=== PATIENT | male | born 1960 | race Caucasian/White ===

== ENCOUNTER 2018-09-13 16:36 | Emergency (ER) | payer SELFPAY ==
[2018-09-13 16:36] VITALS: BP 197/86; PULSE 112; RESP 17; TEMP 37.4; O2SAT 97; BMI 29.9
[2018-09-13 16:41] VITALS: PULSE 108; RESP 19; O2SAT 97
--- NOTE | 2018-09-13 16:54 | EKG12_ITS ---
Test Reason : SEIZURE Blood Pressure : / mmHG Vent. Rate : 101 BPM Atrial Rate : 101 BPM P-R Int : 148 ms QRS Dur : 082 ms QT Int : 330 ms P-R-T Axes : 060 012 038 degrees QTc Int : 427 ms Sinus tachycardia Otherwise normal ECG Confirmed by RADHA HARRELL, DEVENDRA ([id number]), scientific editor YULIANA COBIAN ([id number] on 09/16/2018 2:18:35 PM Referred By: LOREN Confirmed By:DEVENDRA GARCIA MD
[2018-09-13 17:40] LABS: Absolute Lymphocyte Count 1.52 X10^3/ul (0.83-4.51); Absolute Neutrophil Count 7.5 X10^3/uL (2.0-7.7); Basophil# 0.03 X10^3/uL; Basophil% 0.3 % (0-1); Eosinophil# 0.12 X10^3/uL; Eosinophils% 1.2 % (0-5); Hematocrit 43.5 % (40-54); Hemoglobin 15.3 g/dl (13.0-16.5); Lymphocyte # 1.52 X10^3/ul (4.0); Lymphocyte % 15.3 % (19-41); Mean Corp Hgb Conc 35.2 g/gl (32-36); Mean Corpuscular Hgb 32.1 pg (27.0-32.0); Mean Corpuscular Volume 91.4 fL (80-94); Mean Platelet Vol. 9.4 fl (6.2-12.0); Monocyte# 0.72 X10^3/uL; Monocyte% 7.2 % (0-10); Neutrophil # 7.53 X10^3/uL (2.7-7.7); Neutrophil % 75.8 % (47-70); Platelet Count 222 K/mm3 (150-450); RBC Distribution Width CV 13.2 % (11.6-14.6); RBC Distribution Width SD 43.8 fl (35.1-43.9); Red Blood Count 4.76 M/mm3 (4.6-6.2); White Blood Count 9.9 K/mm3 (4.4-11.0)
[2018-09-13 17:46] LABS: POSITIVE COUNT NO; POSITIVE DIFFERENTIAL NO; POSITIVE MORPHOLOGY NO
--- NOTE | 2018-09-13 17:48 | ED.VISSUMM ---
- ER Visit Summary Date of Service: 09/13/18 Chief Complaint: Seizure History of Present Illness: The patient is a 57 M who was at work today when he had a seizure. He states that he was at the end of his workday using a bonnie when he got a funny feeling in his head. He recognized this as a aura that he experiences before he has a seizure. He sat down on the ground. Reportedly seizure was generalized lasting 5 minutes. He has no complaints at the current time. He denies any injuries. Denies any loss of bowel or bladder control. No headache. He used to be on Dilantin and stopped this 1-/2-2 years ago. He no longer sees neurology. Physical Examination: Afebrile vital signs are stable Gen: Well-nourished well-developed Head: Normocephalic atraumatic Eyes: Perrl EOMI ENT: TMs clear no rhinorrhea moist mucous membranes Neck: Supple no lymphadenopathy no JVD nontender CVS: Regular rate rhythm no murmurs normal S1-S2 Respiratory: No distress clear to auscultation bilaterally chest nontender Abdomen: Soft nontender nondistended normal bowel sounds no masses Back: Nontender Extremity: Nontender no edema Skin: Normal color no rash Neuro: alert orientated ?3 CN II-XII intact normal strength sensation reflexes gait cerebellar Psych: Normal affect normal mood Test Results: EKG shows a sinus rhythm at a rate of 101. Basic labs are negative. Emergency Department Course and Treatment: Seizure precautions instituted. Patient received Dilantin 50 mg/kg IV. Patient states that his previous dose of Dilantin was 100 mg twice daily. I will write for this. Impression: 1. Epileptic seizure This note was generated with [employer] dictation software. It may contain incorrect words, spelling, and punctuation that were not noted in review of the chart prior to signing ED Disposition - Plan for ED Patient: Disposition: Home or Assisted Living Chief Complaint: Seizure Instructions: ED Seizure Recurrent Prescriptions: Phenytoin Na [Dilantin] 100 mg PO BID 30 Days cap Referrals: Neto Vu MD [STAFF PHYSICIAN] - Additional Instructions: It is our recommendation that you not drive because of the seizure disorder You need to speak with your employer regarding using the machinery at work until you have seen neurology. You need to see neurology in follow-up. You will need to have your Dilantin level checked. If you feel tired or confused or weak you should have your level checked
[2018-09-13 17:55] LABS: ALB/GLOB Ratio 1.3 RATIO (0.9-2.4); AST(SGOT) 18 U/L (15-37); Alanine Aminotransfer ALT/SGPT 24 U/L (16-61); Albumin, Serum 4.1 g/dL (3.2-5.0); Alkaline Phosphatase 71 U/L (45-117); Anion Gap 8 (5-15); BUN 11 mg/dL (7-18); BUN/Creat Ratio 10.3 RATIO (10-20); Calcium,Total 8.6 mg/dL (8.5-10.1); Chloride 104 mmol/L (98-107); Creatinine, Serum 1.07 mg/dL (0.70-1.30); EST Glomerular Filtration Rate 76 mL/min (>60); Est Glom Filt Rate - Afr Amer 92 mL/min (>60); Estimated Creatinine Clearance 75.47 ml/min; Globulin 3.2 g/dL (2.2-4.2); Glucose 87 mg/dL (74-106); Potassium 3.6 mmol/L (3.5-5.1); Protein, Total 7.3 g/dL (6.4-8.2); Sodium Level 137 mmol/L (136-145)
[2018-09-13 18:45] VITALS: BP 148/92; PULSE 88; RESP 18; O2SAT 99
[2018-09-13 19:28] VITALS: BP 156/75; PULSE 91; RESP 20; O2SAT 98
--- OUTSIDE RECORDS SUMMARY | 2018-11-09 09:26 | XMS RPT_ITS ---
:1960 Author Organization [facility] Care Team Providers Name Role Phone NO, DOCTOR ON Consulting Unavailable NO, DOCTOR ON Referring Unavailable HARISH RETANA Admitting Unavailable HARISH RETANA Attending Unavailable HARISH RETANA Primary Care Unavailable Jake Ware Attending Unavailable Vish Claire Attending Unavailable Primay Care Physicia, No Primary Care Unavailable PROBLEMS PROBLEMS No Problem Records FoundPROCEDURES PROCEDURES No Procedure Records FoundRESULTS RESULTS 12 LEAD ELECTROCARDIOGRAM Observed: 09/16/2018 Status: F Source: [place] [address] 2:19 PM [facility] REPOSITORY [facility] Cardiovascular Services [address] [place] [address] 12 Lead EKG 09/13/18 1712 MR#: [id number] Acct: [id number] Name: INÉS TRACEY Rep #: [id number] : 1960 57 From: Paul Sepulveda MD Attending Dr: Status: DEP ER Ordering Dr: Vish Claire DO Date: 09/13/18 Location: ED Sex: M C Admitted: Test Reason : SEIZURE Blood Pressure : / mmHG Vent. Rate : 101 BPM Atrial Rate : 101 BPM P-R Int : 148 ms QRS Dur : 082 ms QT Int : 330 ms P-R-T Axes : 060 012 038 degrees QTc Int : 427 ms Sinus tachycardia Otherwise normal ECG Confirmed by PAUL SEPULVEDA MD ([id number]), editor city YULIANA COBIAN ([id number]) on 09/16/2018 2:18:35 PM Referred By: LOREN Confirmed By:PAUL SEPULVEDA MD 09/16/18 1418 Date Paul Sepulveda MD CC: No Primary Care Physician; Vish Claire DO Signed EMERGENCY DEPARTMENT Observed: 09/15/2018 Status: F Source: [place] [address] SUMMARY 8:16 AM [facility] REPOSITORY [facility] Medical Records Department [address] [place] [address] Emergency Department Summary 09/13/18 1748 MR#: [id number] Acct: [id number] Name: INÉS TRACEY Rep #: [id number] : 1960 57 From: Vish Claire DO PCP: Care Physician, No Primary Status: DEP ER - ER Visit Summary Date of Service: 09/13/18 Chief Complaint: Seizure History of Present Illness: The patient is a 57 M who was at work today when he had a seizure. He states that he was at the end of his workday using a bonnie when he got a funny feeling in his head. He recognized this as a aura that he experiences before he has a seizure. He sat down on the ground. Reportedly seizure was generalized lasting 5 minutes. He has no complaints at the current time. He denies any injuries. Denies any loss of bowel or bladder control. No headache. He used to be on Dilantin and stopped this 1-1/2-2 years ago. He no longer sees neurology. Physical Examination: Afebrile vital signs are stable Gen: Well-nourished well-developed Head: Normocephalic atraumatic Eyes: Perrl EOMI ENT: TMs clear no rhinorrhea moist mucous membranes Neck: Supple no lymphadenopathy no JVD nontender CVS: Regular rate rhythm no murmurs normal S1-S2 Respiratory: No distress clear to auscultation bilaterally chest nontender Abdomen: Soft nontender nondistended normal bowel sounds no masses Back: Nontender Extremity: Nontender no edema Skin: Normal color no rash Neuro: alert orientated 3 CN II-XII intact normal strength sensation reflexes gait cerebellar Psych: Normal affect normal mood Test Results: EKG shows a sinus rhythm at a rate of 101. Basic labs are negative. Emergency Department Course and Treatment: Seizure precautions instituted. Patient received Dilantin 50 mg/kg IV. Patient states that his previous dose of Dilantin was 100 mg twice daily. I will write for this. Impression: 1. Epileptic seizure This note was generated with Samplesaint dictation software. It may contain incorrect words, spelling, and punctuation that were not noted in review of the chart prior to signing ED Disposition - Plan for ED Patient: Disposition: Home or Assisted Living Chief Complaint: Seizure Instructions: ED Seizure Recurrent Prescriptions: Phenytoin Na [Dilantin] 100 mg PO BID 30 Days cap Referrals: Neto Vu MD [STAFF PHYSICIAN] - Additional Instructions: It is our recommendation that you not drive because of the seizure disorder You need to speak with your employer regarding using the machinery at work until you have seen neurology. You need to see neurology in follow-up. You will need to have your Dilantin level checked. If you feel tired or confused or weak you should have your level checked What to do if you have Problems For any increased pain, shortness of breath, bleeding, nausea or vomiting, chest pain, or any unexpected problems, contact your Primary Care Provider. Call [facility] ([phone]) or report to the closest Emergency Room. Call 911 if necessary. 09/15/18 0816 <Electronically signed by Vish Claire DO> Date Vish Claire DO Cosigner Signature (If Indicated): Date CC: No Primary Care Physician CBC W/DIFF, AUTOMATED Collected: 09/13/2018 Status: F Source: DINA 5:10 PM [facility] REPOSITORY TYPE CODE TESTS RESULT OUT OF RANGE REFERENCE UNITS LAB L100.1000 4.4-11.0 K/mm3 Normal WBC 9.9 LAB L100.1200 4.6-6.2 M/mm3 Normal RBC 4.76 LAB L100.1300 13.0-16.5 g/dl Normal HGB 15.3 LAB L100.1400 40-54 % Normal HCT 43.5 LAB L100.1500 80-94 fL Normal MCV 91.4 LAB L100.1600 27.0-32.0 pg High MCH 32.1 LAB L100.1700 32-36 g/gl Normal MCHC 35.2 LAB L100.1810 11.6-14.6 % Normal RDW CV 13.2 LAB L100.1820 35.1-43.9 fl Normal RDW SD 43.8 LAB L100.1900 150-450 K/mm3 Normal PLT 222 LAB L100.2000 6.2-12.0 fl Normal MPV 9.4 LAB L100.2100 47-70 % High NEUT% 75.8 LAB L100.2200 19-41 % Low LY% 15.3 LAB L100.2300 0-10 % Normal MONO% 7.2 LAB L100.2400 0-5 % Normal EO% 1.2 LAB L100.2500 0-1 % Normal BASO% 0.3 LAB L100.2550 0.0-0.9 % Normal IM GRAN % 0.200 Result Comment: IG% - Immature Granulocytes (promyelocytes, myelocytes and metamyelocytes) > 1% indicates that a LEFT SHIFT is Present. LAB L100.2620 2.0-7.7 X10 3/uL Normal Absolute Neut 7.5 LAB L100.2720 0.83-4.51 X10 3/ul Normal Absolute Lymph 1.52 Performed By: #### L100.0100 #### [facility] [place], [address] COMPREHENSIVE METABOLIC Collected: 09/13/2018 Status: F Source: DINA ALLEN 5:10 PM [facility] REPOSITORY TYPE CODE TESTS RESULT OUT OF RANGE REFERENCE UNITS LAB L501.0100 74-106 mg/dL Normal GLU 87 Result Comment: Please note revised GLUCOSE reference range effective 2017. LAB L501.1000 7-18 mg/dL Normal BUN 11 LAB L501.1100 0.70-1.30 mg/dL Normal CREAT,SERUM 1.07 Result Comment: The validity of the calculated GFR AND GFRAA in patients over 70 years has not been determined. Clinical correlation is essential. LAB L501.1110 >60 mL/min Normal EST GFR 76 Result Comment: Non- GFR Calc LAB L501.1115 >60 mL/min Normal EST GFR - AA 92 Result Comment: GFR Calc LAB L501.1255 ml/min Normal Estimated CRCL 75.47 LAB L501.1300 10-20 RATIO Normal BUN/CRE 10.3 LAB L501.1500 6.4-8. g/dL Normal 2 T PROT 7.3 LAB L501.1800 3.2-5. g/dL Normal 0 ALB 4.1 LAB L501.1950 2.2-4. g/dL Normal 2 GLOB 3.2 LAB L501.2000 0.9-2. RATIO Normal 4 A/G 1.3 LAB L501.2200 8.5-10 mg/dL Normal .1 CA 8.6 LAB L501.4100 15-37 U/L Normal AST 18 LAB L501.4305 45-117 U/L Normal ALK P 71 LAB L501.4405 16-61 U/L Normal ALT 24 LAB L501.4600 0.20-1 mg/dL Normal .00 T BILI 0.90 LAB L501.5300 136-14 mmol/L Normal 5 NA 137 LAB L501.5600 3.5-5. mmol/L Normal 1 K 3.6 LAB L501.5900 98-107 mmol/L Normal CL 104 LAB L501.6100 21.0-3 mmol/L Normal 2.0 CO2 25.0 LAB L501.6200 5-15 Normal GAP 8 Performed By: #### L500.4050, L501.4010 #### [facility] [address] [place], [place], [id number] TROPONIN-I Collected: 09/13/2018 Status: F Source: [place] [address] 5:10 PM [facility] REPOSITORY TYPE CODE TESTS RESULT OUT OF RANGE REFERENCE UNITS LAB L501.4010 <0.045 ng/mL Normal < 0.015 TROPONIN-I Result Comment: TROPONIN-I EXPECTED VALUES <0.045 Negative 0.045 - 0.590 Consistent with Cardiac Damage > OR = 0.600 Critical Value Not every elevated troponin is indicative of TX. These values should be used with clinical judgement in examining the patient's clinical picture for diagnosis. To establish a diagnosis of TX versus myocardial injury, there must be a demonstrated rise and/or fall in the troponin values, in addition to ischemic symptoms, EKG changes, new regional wall motion abnormality, and/or angiographical evidence. PLEASE NOTE: REFERENCE RANGES EDITED 18 Performed By: #### L500.4050, L501.4010 #### [facility] [address] [place], [address] OPERATIVE PROCEDURES Observed: 05/12/2018 Status: F Source: [facility] 4:56 PM [facility] REPOSITORY [facility] OPERATIVE REPORT NAME ACCOUNT SEX AGE ADMIT DISCHARGE PT MED. RECORD# NUMBER DATE DATE TYPE INÉS TRACEY [id number] M 57 05/10/18 05/10/18 2 [id number] ROOM: [facility] DATE OF : 1960 DICTATING PHYSICIAN: Harish Retana DATE OF SURGERY: May 10, 2018 SURGEON: Harish Retana MD SERVICE PARTS DRIVER: ANESTHESIOLOGIST: ANESTHETIC: PREOPERATIVE DIAGNOSES: (1) Right outer cheek laceration x2. (2) Intraoral right buccal mucosa laceration with herniation of fat content. POSTOPERATIVE DIAGNOSES: (1) Right outer cheek laceration x2. (2) Intraoral right buccal mucosa laceration with herniation of fat content. OPERATION PERFORMED: COMPLICATIONS: ESTIMATED BLOOD LOSS: Less than 5 mL. INDICATIONS: The patient is a very pleasant 57-year-old male who earlier today had a seizure. The patient has a known history of seizure disorder; however, he has been off his seizure medications for 3 years without any issues or events. He states he fell and hit the concrete. He states he had no significant loss of consciousness. He was seen and evaluated in the ER. He had a CT scan of his facial bones done. This showed some thickening inside the maxillary sinuses consistent with most likely blood from the trauma. He had some air in the subcutaneous tissues involving the right cheek. No other significant acute findings. He underwent physical examination there and was found to have the 2 lacerations as well as the intraoral laceration on the buccal mucosa on the right side with translocation of fat. The risks and benefits of the procedure were discussed with the patient, and informed consent was obtained. FINDINGS: As noted above. DESCRIPTION OF OPERATION: After obtaining informed consent, the patient was Page 1 of 2 KYUNG IÉNS Gerard Operative Report taken to the operating room and placed in the supine position. General endotracheal anesthesia was then performed. The external area was cleaned, prepped and draped in the usual sterile fashion. The wounds were then debrided as necessary and closed using a combination of 5-0 Monocryl and 5-0 Prolene sutures. The laceration was then wiped. We then placed a retractor to open the mouth. The laceration involving the intraoral buccal mucosa on the right side was easily visible. The herniated fat was taken and tucked back in through the laceration. The laceration was then closed using 4-0 chromic suture in an interrupted fashion. The patient was then awakened, extubated and taken to the recovery room in stable condition. Dictated By: Harsih Retana MD 05/10/18 16:47 JOB #: [id number] Transcribed By: hannah 05/11/18 07:56 Electronically signed by: E-Sign Dr. Harish Retana MD 05/12/18 16:55 Page 2 of 2 TRACEYCIPRIANOY Rajani Operative Report EMERGENCY REPORT Observed: 05/12/2018 Status: F [facility] EMERGENCY ROOM REPORT NAME ACCOUNT SEX AGE ADMIT DISCHARGE PT MED. RECORD# NUMBER DATE DATE TYPE INÉS TRACEY [id number] M 57 05/10/18 2 [id number] ROOM: [facility] DATE OF : 1960 DICTATING PHYSICIAN: Stella Ivory HISTORY OF PRESENT ILLNESS: The patient has a history of seizure disorder. He has not had a seizure in 3 years. He said today he felt like he was going to have a seizure. He is supposed to be taking Dilantin, which he does not take because he does not like the way it makes him feel and he had a seizure and landed on the ground. He has lacerations to the right side of the face and marked swelling. PAST MEDICAL HISTORY: He has a history of hypertension, which is uncontrolled. He is not taking medications. I suspect he has COPD as he smokes over 2 packs of cigarettes a day for 40 years. He has seizure disorder, noncompliant. PAST SURGICAL HISTORY: He has had right leg surgery. SOCIAL HISTORY: He does smoke. He also drinks alcohol every day. REVIEW OF SYSTEMS: Ten systems reviewed and negative except as mentioned above. PHYSICAL EXAMINATION: He is an awake, alert, and oriented male in no acute distress when he came in. He is afebrile. Pulse 118, respirations 18, blood pressure 157/96, and pulse ox 89% and we did place him on oxygen. Head is normocephalic with abrasions and contusions to the right side of the face. Pupils are equal, round, and reactive to light. Nares are patent. He is able to open his mouth. He has no tongue biting. Heart without murmur. S1 equals S2. No S3 or S4 appreciated. Lungs are clear to auscultation bilaterally. No rales, rhonchi, or retractions. Abdomen is soft, nontender, and nondistended. Skin is warm and dry. DIAGNOSTIC DATA: The patient had a CT of the face, head, and neck. The face showed a fracture of the mandible. CT of the brain was unremarkable. His neck showed an old fracture, which he states he has always had neck pain. EMERGENCY DEPARTMENT COURSE AND TREATMENT: The patient was given Unasyn for pain. Tetanus is not up-to-date, and we will update his tetanus. DIAGNOSES: 1. Acute seizure - noncompliance. 2. Fall. 3. Facial fractures, contusion, and laceration to the face. Page 1 of 2 INÉS TRACEY Emergency Room Report 4. Suspect he has chronic obstructive pulmonary disease. 5. Also suspect he has alcoholism. PLAN/DISPOSITION: I did discuss with Dr. Retana, who came down immediately and saw the patient. He is going to take the patient to surgery to fix his lacerations and facial issues. Dictated By: Stella Ivory DO 05/10/18 17:19 JOB #: [id number] Transcribed By: josue 05/10/18 17:43 Electronically signed by: DAYDAY Ivory D.O. 05/12/18 14:23 Page 2 of 2 INÉS TRACEY Emergency Room Report CT BRAIN W/O CONTRAST Observed: 05/10/2018 Status: F Source: [facility] 12:[address] [address] Patient: INÉS TRACEY Phone#: : 1960 Age: 57 Gender: M Pt. Type: ER Account: [id number] Location: 052 Ordering: STELLA IVORY Exam Date: 05/10/2018/12:26 Family Phys: EVELYNVIK SAWANTYANI Charge Code: [id number] Physician: [place] Order #: [id number] DLP Dose#: PROCEDURE: CT BRAIN WITHOUT CONTRAST COMPARISON: None. INDICATIONS: Trauma TECHNIQUE: CT images were obtained without contrast material. All CT scans at this facility use dose modulation, iterative reconstruction, and/or weight based dosing when appropriate to reduce radiation dose to as low as reasonably achievable. IV CONTRAST: No IV contrast used,0ml TOTAL DOSE: 52.3 CTDIvol(mGy) FINDINGS: CEREBRUM: There is an area of encephalomalacia and convexity and right parietal lobe. There is no evidence of acute hemorrhage. CEREBELLUM: No edema, hemorrhage, mass, acute infarction, or inappropriate atrophy. BRAINSTEM: No edema, hemorrhage, mass, acute infarction, or inappropriate atrophy. CSF SPACES: Ventricles, cisterns, and sulci are appropriate for age. No hydrocephalus, subarachnoid hemorrhage, or mass. SKULL: No mass or other significant visible lesion. SINUSES: Mucosa is present in the base of the left maxillary sinus. ORBITS: Limited views are unremarkable. OTHER: Negative. CONCLUSION: No acute disease. Encephalomalacia in the right parietal lobe. Dictated by: Ignacia Ugalde MD on 05/10/2018 at 12:48 Continued Report - Page 2 of 2 Patient: INSÉ TRACEY Phone#: : 1960 Age: 57 Gender: M Pt. Type: ER Account: [id number] Location: 052 Ordering: STELLA DIANELYS Exam Date: 05/10/2018/12:26 Family Phys: DAVID POP Charge Code: [id number] Physician: [place] Order #: [id number] DLP Dose#: Approved by: Ignacia Ugalde MD on 05/10/2018 at 12:48 CT FACIAL BONES W/O Observed: 05/10/2018 Status: F Source: [facility] [place] CONTRAST 12:36 PM [place] [id number] [place] [address] Patient: INÉS TRACEY Connie Phone#: : 1960 Age: 57 Gender: M Pt. Type: ER Account: [id number] Location: [facility] Ordering: STELLA IVORY Exam Date: 05/10/2018/12:26 Family Phys: DAVID DONN Charge Code: [id number] Physician: [place] Order #: [id number] DLP Dose#: PROCEDURE: CT FACIAL BONES WITHOUT CONTRAST COMPARISON: None. INDICATIONS: Trauma TECHNIQUE: After obtaining the patient's consent, CT images were created without non-ionic intravenous contrast. All CT scans at this facility use dose modulation, iterative reconstruction, and/or weight based dosing when appropriate to reduce radiation dose to as low as reasonably achievable. IV CONTRAST: No IV contrast used,0ml TOTAL DOSE: 27.8 CTDIvol(mGy) FINDINGS: FACIAL BONES: There is avulsion of the coronoid process of the mandible on the right. The avulsed fragment is displaced anteriorly and superiorly. Subcutaneous edema and hemorrhage is present anterior and lateral to the mandibular ramus and body. There is subcutaneous emphysema. The source is not clearly demonstrated and fracture of the right maxillary sinus is suspected. Correlate with laceration as possible source overlying the right mandible. SINUSES: Mucosal thickening is present in the maxillary sinuses. There is a mucous on the base of the left maxillary sinus. NASAL FOSSA: There is nasal septal deviation to the left. SKULL BASE: Normal. No mass or bone destruction. ORBITS: Normal. No visible mass, hematoma, edema or fracture. CAVERNOUS SINUS: Normal. Symmetric appearance with no visible lesion. SALIVARY GLANDS: Normal. The parotid and submandibular glands are unremarkable. Continued Report - Page 2 of 2 Patient: INÉS TRACEY Phone#: : 1960 Age: 57 Gender: M Pt. Type: ER Account: [id number] Location: 052 Ordering: [facility] Exam Date: 05/10/2018/12:26 Family Phys: EVELYNVIK POP Charge Code: [id number] Physician: [place] Order #: [id number] DLP Dose#: OTHER: Degenerative changes of the upper cervical spine are present. The nasopharynx, oropharynx, and oral cavity are unremarkable. No lymphadenopathy. CONCLUSION: 1. There is avulsion of the coronoid process of the right mandible with superior and anterior displacement. There is soft tissue edema and hemorrhage. Subcutaneous emphysema is present. Fracture of the right maxillary sinus is not identified but is suspected as a source of the subcutaneous emphysema Dictated by: Ignacia Ugalde MD on 05/10/2018 at 12:56 Approved by: Ignacia Ugalde MD on 05/10/2018 at 12:56 CT CERVICAL W/O Observed: 05/10/2018 Status: F Source: [facility] [place] CONTRAST 12:36 PM [place] [address] Patient: INÉS TRACEY Phone#: : 1960 Age: 57 Gender: M Pt. Type: ER Account: [id number] Location: 052 Ordering: [facility] Exam Date: 05/10/2018/12:26 Family Phys: DAVID POP Charge Code: [id number] Physician: [place] Order #: [id number] DLP Dose#: PROCEDURE: CT CERVICAL WITHOUT CONTRAST COMPARISON: None. INDICATIONS: Trauma TECHNIQUE: Multi-planar CT images were created without intravenous contrast. All CT scans at this facility use dose modulation, iterative reconstruction, and/or weight based dosing when appropriate to reduce radiation dose to as low as reasonably achievable. IV CONTRAST: No IV contrast used,0ml TOTAL DOSE: 12.8 CTDIvol(mGy) FINDINGS: CRANIOCERVICAL AREA: Normal foramen magnum with no Chiari malformation. PARASPINAL AREA: Normal with no visible mass. BONES: A vertical defect is present involving the left superior articular process of the C6 vertebral body. Age is indeterminate. Multilevel degenerative changes present. CERVICAL DISC LEVELS: C2-C3: Disc space narrowing is present. As was present at the anterior endplates. There is no evidence of acute bone abnormality. C3-C4: Degenerative changes are present. There is narrowing of the neural foramina bilaterally. Osteophytes are present at the endplates. C4-C5: No significant disc/facet abnormality, spinal stenosis, or foraminal stenosis. C5-C6: Bony hypertrophy is present at the articular facets. There is narrowing of the foramina bilaterally greater on the left than the right. Vertical defect involving the superior articular process of C6 on the left is present. Defect extends to the articulation. He ages undetermined. The margins appear to be well-corticated suggesting defect. Continued Report - Page 2 of 2 Patient: INÉS TRACEY Phone#: : 1960 Age: 57 Gender: M Pt. Type: ER Account: [id number] Location: 052 Ordering: STELLA IVORY Exam Date: 05/10/2018/12:26 Family Phys: DAVID SAWANTYANI Charge Code: [id number] Physician: [place] Order #: [id number] DLP Dose#: C6-C7: By hypertrophy is present at the articular facets greater on the left than the right. There is foraminal narrowing. C7-T1: No significant disc/facet abnormality, spinal stenosis, or foraminal stenosis. CONCLUSION: 1. Vertical defect at the left superior articular process of C6 is present. The margins appear to be corticated suggestive of remote fracture. 2. Diffuse degenerative changes are present. There is foraminal impingement at multiple levels. Dictated by: Ignacia Ugalde MD on 05/10/2018 at 13:09 Approved by: Ignacia Ugalde MD on 05/10/2018 at 13:09 ALLERGIES ALLERGIES DATE TYPE / CODE NAME / CODE REACTION SEVERITY SOURCE 09/13/2018 Drug No Known Unknown Dina Allergy/[id number](S Allergies/F0019 [facility] NOMED CT) [address](RXNORM) Hospital Repository Miscellaneous No Known Drug Moderate Jourdan Pomerene Allergy/[id number](S Allergies (Severity [facility] NOMED CT) Modifier) Hospital (Qualifier Repository Value) ENCOUNTERS ENCOUNTERS ADMIT/DISCHARGE ACCOUNT ADMITTING ENCOUNTER LOCATION SOURCE NUMBER CLASS 09/13/2018/ [id number] Emergency Dina Dina 8 8 [facility] ing:ED Repository 05/10/2018/ [id number] HARISH RETANA [facility] [place] [address] oom: AMB[address] [place] [address] Repository 12/20/2017/ [id number] Ambulatory BMSBuilding:[place] [address] [place].NOW [facility] Repository PAYERS PAYERS ENCOUNTER GUARANTOR PAYER SUBSCRIBER SOURCE 09/13/2018 INÉS A Primary Insurance:SELF NOT GIVENUNK Dina [id number] PAY [address] Number: Effective [facility] [id number]: (330) Date:2018-09-13 Repository [phone] () 05/10/2018 INÉS A Primary INÉS Gerard [facility]:WORKERS COMP [id number] [facility] [id number] [address], Number: [place] [id number] Repository [place] [address]Xkn: [id number] Date:Plan Name:W1 () 12/20/2017 INÉS A Primary Insurance:SELF NOT GIVENUNK Dina [id number] PAY [address] Number: Effective [facility] [id number]: ([phone]) Date:2017-12-20 Repository [phone] ()
== END 2018-09-13 19:28 | disposition home or self-care (01) ==
PROVIDERS: Emergency Provider Emergency Medicine
DX: G40.909 Epilepsy, unspecified, not intractable, without status epilepticus (principal); Z72.0 Tobacco use
CPT/HCPCS: 80053; 84484; 85025; 93005; 96365; 99285; J7030; A4216

== ENCOUNTER 2018-11-25 10:14 | Emergency (ER) | payer SELFPAY ==
[2018-11-25 10:15] VITALS: BP 152/79; BP 160/84; PULSE 124; PULSE 130; RESP 20; RESP 25; TEMP 37.2; O2SAT 96; BMI 29.9
--- NOTE | 2018-11-25 10:25 | CT_ITS ---
STUDY: CT BRAIN WITHOUT CONTRAST REASON FOR EXAM: Male, 58 years old. Seizure. RADIATION DOSAGE (If Supplied By Facility): CTDIvol = ( 44.99 ) mGy, DLP = ( 812.98 ) mGycm TECHNIQUE: Transaxial CT imaging of the brain was performed without administration of intravenous contrast material. Individualized dose optimization techniques were used for this CT. COMPARISON: None. FINDINGS: Normal soft tissue structures. Normal calvarium. There is mild cerebral atrophy with widening of the extra-axial spaces and ventricular dilatation. There are areas of decreased attenuation within the white matter tracts of the supratentorial brain, consistent with microvascular disease changes. Focal area of encephalomalacia in the posterior right temporal parietal lobe. This may represent an area of prior ischemia. There is also evidence of focal encephalomalacia in the posterior superior aspect of the right parietal lobe. Normal basal ganglia and thalami. Normal brainstem. Normal cerebellum. There is no intracranial hemorrhage. There are no findings of an acute ischemic infarction. Partial opacification of the left maxillary sinus. CT/Brain/Head without Contrast IMPRESSION: Chronic involutional changes of the brain. Electronically Signed: Jonah Mayer MD at 12:25 EST , Service support ,
[2018-11-25 10:31] LABS: Absolute Lymphocyte Count 0.84 X10^3/ul (0.83-4.51); Basophil# 0.04 X10^3/uL; Basophil% 0.5 % (0-1); Eosinophil# 0.06 X10^3/uL; Eosinophils% 0.8 % (0-5); Hematocrit 45.1 % (40-54); Hemoglobin 15.5 g/dl (13.0-16.5); Lymphocyte # 0.84 X10^3/ul (4.0); Lymphocyte % 11.2 % (19-41); Mean Corp Hgb Conc 34.4 g/gl (32-36); Mean Platelet Vol. 9.5 fl (6.2-12.0); Monocyte# 0.58 X10^3/uL; Monocyte% 7.7 % (0-10); Neutrophil # 5.98 X10^3/uL (2.7-7.7); Neutrophil % 79.4 % (47-70); POSITIVE COUNT NO; POSITIVE DIFFERENTIAL NO; POSITIVE MORPHOLOGY NO; Platelet Count 191 K/mm3 (150-450); RBC Distribution Width SD 44.3 fl (35.1-43.9); Red Blood Count 4.85 M/mm3 (4.6-6.2); White Blood Count 7.5 K/mm3 (4.4-11.0)
--- NOTE | 2018-11-25 10:31 | ED.VISSUMM ---
- ER Visit Summary Date of Service: 11/25/18 Chief Complaint: Seizure History of Present Illness: The patient is a 58 M who presents after a seizure. The patient was at work and had a generalized tonic-clonic seizure. He did hit his head on the way down when he fell according to bystanders. EMS was called and the patient was slightly postictal and combative but now is back to his normal mental state. He history of seizures. He was on Dilantin but has been off of it for 6 months. He states that he did not like the way he felt on it so he took himself off. He has a slight headache but otherwise no other symptoms. Physical Examination: Vital signs reviewed. HEENT exam unremarkable. Heart is regular rate and rhythm without murmurs. Lungs are clear to auscultation. Abdomen is soft and nontender. Extremities reveal no edema. Skin exam normal. Neurologic exam normal. Test Results: Laboratory studies unremarkable except for a bicarb of 20 and creatinine of 1.41. CAT scan of the head reveals chronic changes Emergency Department Course and Treatment: I informed the patient he should probably restart his Dilantin. We will give him his normal dose of 100 mg twice daily. I will give him 1 dose here. He will follow-up with his PCP who he can discuss with possibly changing to another medication he will tolerate better. Treatment Plan: [] Disposition: Discharge Impression: Seizure, history of seizures This note was generated with [employer] dictation software. It may contain incorrect words, spelling, and punctuation that were not noted in review of the chart prior to signing ED Disposition - Plan for ED Patient: Disposition: Home or Assisted Living Instructions: ED Seizure Recurrent Prescriptions: Phenytoin Na [Dilantin] 100 mg PO BID #60 cap Referrals: Care Physician,No Primary [Primary Care Provider] -
[2018-11-25 10:42] LABS: Anion Gap 14 (5-15); BUN 11 mg/dL (7-18); BUN/Creat Ratio 7.8 RATIO (10-20); Calcium,Total 8.9 mg/dL (8.5-10.1); Chloride 103 mmol/L (98-107); Creatinine, Serum 1.41 mg/dL (0.70-1.30); EST Glomerular Filtration Rate 55 mL/min (>60); Est Glom Filt Rate - Afr Amer 67 mL/min (>60); Glucose 97 mg/dL (74-106); Potassium 3.7 mmol/L (3.5-5.1); Sodium Level 137 mmol/L (136-145)
--- NOTE | 2018-11-25 12:40 | ED.DEP ---
ED Disposition - Plan for ED Patient: Disposition: Home or Assisted Living Instructions: ED Seizure Recurrent Prescriptions: Phenytoin Na [Dilantin] 100 mg PO BID #60 cap Referrals: Care Physician,No Primary [Primary Care Provider] -
[2018-11-25] MEDS: Phenytoin Na 100 MG Capsule PO (12:48)
[2018-11-25 12:50] VITALS: BP 173/67; PULSE 87; RESP 16; O2SAT 98
== END 2018-11-25 12:51 | disposition home or self-care (01) ==
PROVIDERS: Emergency Provider Emergency Medicine
DX: G40.409 Other generalized epilepsy and epileptic syndromes, not intractable, without status epilepticus (principal); Z72.0 Tobacco use
CPT/HCPCS: 70450; 80048; 85025; 99285